=== PATIENT | male | born 1980 | race African-American/Black ===

== ENCOUNTER 2017-07-15 02:59 | Emergency (ER) | payer OTHER ==
[2017-07-15] MEDS ORDERED: NS 1,000 ML IV ONE (03:01)
[2017-07-15] MEDS ORDERED: FAMOTIDINE 20 MG/NACL 50 ML IV ONE (03:01)
--- NOTE | 2017-07-15 03:10 | EDPHY ---
H & P Stated Complaint: mid abd pain, nausea Time Seen by Provider: 07/15/17 03:01 HPI/ROS: HPI The patient presents with abdominal pain which has been present for the last several hours which awoke him from sleep. He ate a normal dinner at about 8:00 p.m. Tonight and then went to bed. Several hours later, the pain began. It is epigastric, burning in nature, does not radiate, is associated with nausea though no vomiting. He has had normal bowel movements lately and denies any dark or bloody stools. He was previously on Prilosec up until about 4 months ago. He is currently incarcerated. He has a history of a perforated peptic ulcer in 2005 requiring surgical repair. He says he occasionally has mild pain , however this is more severe than usual.. REVIEW OF SYSTEMS Constitutional: No fever, no chills. Eyes: No discharge. ENT: No sore throat. Cardiovascular: No chest pain, no palpitations. Respiratory: No cough, no shortness of breath. Gastrointestinal: See HPI Genitourinary: No hematuria. Musculoskeletal: No back pain. Skin: No rashes. Neurological: No headache. PMHx: History of perforated peptic ulcer Soc Hx: Currently incarcerated PHYSICAL General Appearance: Alert, no distress Eyes: Pupils equal and round no pallor or injection ENT, Mouth: Mucous membranes moist Respiratory: There are no retractions, lungs are clear to auscultation Cardiovascular: Regular rate and rhythm Gastrointestinal: Abdomen is soft with tenderness in the epigastrium without rebound or guarding Neurological: A&O, moves all extremities Skin: Warm and dry, no rashes Musculoskeletal: Neck is supple non tender Extremities: symmetrical, full range of motion Psychiatric: Patient is oriented X 3, there is no agitation Source: Patient Exam Limitations: No limitations - Personal History Current Tetanus Diphtheria and Acellular Pertussis (TDAP): No - Medical/Surgical History Hx Asthma: No Hx Chronic Respiratory Disease: No Hx Diabetes: No Hx Cardiac Disease: No Hx Renal Disease: No Hx Cirrhosis: No Hx Alcoholism: No Hx HIV/AIDS: No Hx Splenectomy or Spleen Trauma: No Other PMH: perferated ulcer 2005 - Social History Smoking Status: Current some day smoker Constitutional: Initial Vital Signs Temperature (C) 37.0 C 07/15/17 03:00 Heart Rate 72 07/15/17 03:00 Respiratory Rate 20 /20/18 03:00 Blood Pressure 155/99 H 07/15/17 03:00 O2 Sat (%) 98 07/15/17 03:00 O2 Delivery Mode Room Air Allergies/Adverse Reactions: No Known Allergies Allergy (Unverified 07/15/17 03:01) Home Medications: Medication Instructions Recorded Famotidine [Pepcid 20 MG (*)] 20 mg PO BID #30 tab 07/15/17 Medical Decision Making - Diagnostics Imaging Results: CT abdomen pelvis with contrast demonstrates no acute findings, discussed Dr. Hood of Radiology. Imaging: Discussed imaging studies w/ call center representative Radiologist Differential Diagnosis: 37-year-old male with history of perforated peptic ulcer about 12 years ago presents with epigastric abdominal pain which started suddenly associated with nausea. On exam, he is tender in the epigastrium. Vital signs are normal. Differential diagnosis includes gastritis, gastroenteritis, biliary colic, small -bowel obstruction. Plan for IV fluids, famotidine, basic labs. Labs were unremarkable. Patient felt moderately better after receiving medication. He continued to have tenderness in his epigastrium. Thus, decision was made for CT scan. This was unremarkable. He was reassessed and was continued to feel better. He will be discharged back to [facility]. I will give him course of famotidine. He is in agreement with this plan. - Data Points Laboratory Results: Laboratory Results 07/15/17 03:00 07/15/17 03:00 07/15/17 07/15/17 03:00 03:00 WBC 4.56 10^3/uL 10^3/uL (3.80-9.50) RBC 4.67 10^6/uL 10^6/uL (4.40-6.38) Hgb 13.5 g/dL L g/dL (13.7-17.5) Hct 40.1 % % (40.0-51.0) MCV 85.9 fL fL (81.5-99.8) MCH 28.9 pg pg (27.9-34.1) MCHC 33.7 g/dL g/dL (32.4-36.7) RDW 12.8 % % (11.5-15.2) Plt Count 231 10^3/uL 10^3/uL (150-400) MPV 10.4 fL fL (8.7-11.7) Neut % (Auto) 48.9 % % (39.3-74.2) Lymph % (Auto) 36.6 % % (15.0-45.0) [place] % (Auto) 12.5 % % (4.5-13.0) Eos % (Auto) 1.1 % % (0.6-7.6) Baso % (Auto) 0.7 % % (0.3-1.7) Nucleat RBC Rel Count 0.0 % % (0.0-0.2) Absolute Neuts (auto) 2.23 10^3/uL 10^3/uL (1.70-6.50) Absolute Lymphs (auto) 1.67 10^3/uL 10^3/uL (1.00-3.00) Absolute Monos (auto) 0.57 10^3/uL 10^3/uL (0.30-0.80) Absolute Eos (auto) 0.05 10^3/uL 10^3/uL (0.03-0.40) Absolute Basos (auto) 0.03 10^3/uL 10^3/uL (0.02-0.10) Absolute Nucleated RBC 0.00 10^3/uL 10^3/uL (0-0.01) Immature Gran % 0.2 % % (0.0-1.1) Immature Gran # 0.01 10^3/uL 10^3/uL (0.00-0.10) Sodium 140 mEq/L mEq/L (135-145) Potassium 3.6 mEq/L mEq/L (3.3-5.0) Chloride 105 mEq/L mEq/L (97-110) Carbon Dioxide 22 mEq/l mEq/l (22-31) Anion Gap 13 mEq/L mEq/L (8-16) BUN 7 mg/dL mg/dL (7-23) Creatinine 1.0 mg/dL mg/dL (0.7-1.3) Estimated GFR > 60 Glucose 98 mg/dL mg/dL (70-100) Calcium 9.3 mg/dL mg/dL (8.5-10.4) Total Bilirubin 0.9 mg/dL mg/dL (0.1-1.4) Conjugated Bilirubin 0.4 mg/dL mg/dL (0.0-0.5) Unconjugated Bilirubin 0.5 mg/dL mg/dL (0.0-1.1) AST 29 IU/L IU/L (17-59) ALT 27 IU/L IU/L (21-72) Alkaline Phosphatase 64 IU/L IU/L (38-126) Total Protein 7.3 g/dL g/dL (6.3-8.2) Albumin 4.0 g/dL g/dL (3.5-5.0) Lipase 186 IU/L IU/L (23-300) Medications Given: Discontinued Medications Sodium Chloride (Ns) 1,000 mls @ 0 mls/hr IV EDNOW ONE; Wide Open PRN Reason: Protocol Stop: 07/15/17 03:02 Last Admin: 07/15/17 03:07 Dose: 1,000 mls Famotidine/Sodium Chloride (Pepcid 20 Mg (Premix)) 50 mls @ 200 mls/hr IV EDNOW ONE Stop: 07/15/17 03:15 Last Admin: 07/15/17 03:07 Dose: 50 mls Departure - Departure Disposition: Law Enforcement/Court/Alf Clinical Impression: Abdominal pain Qualifiers: Abdominal location: epigastric Qualified Code(s): R10.13 - Epigastric pain Condition: Good Instructions: Acute Abdominal Pain (ED) Additional Instructions: Please return to the emergency department if your worse in any way. Referrals: NONE *PRIMARY CARE P,. [Primary Care Provider] - As per Instructions Prescriptions: Famotidine [Pepcid 20 MG (*)] 20 mg PO BID #30 tab
[2017-07-15 03:16] LABS: PLATELET COUNT 231 10^3/uL (150-400)
[2017-07-15] MEDS ORDERED: IOPAMIDOL (ISOVUE-300) 100 ML BTL ONE (04:13)
[2017-07-15 04:53] VITALS: BP 121/74
== END 2017-07-15 04:54 ==
DX: R10.13 Epigastric pain (principal); E86.9 Volume depletion, unspecified; F17.200 Nicotine dependence, unspecified, uncomplicated
CPT/HCPCS: 96374; Q9967